=== PATIENT | female | born 1955 | race American Indian/Alaskan Native ===

== ENCOUNTER 2018-08-27 12:01 | Outpatient (CLI) | payer BC | END 2018-08-27 12:02 | disposition home or self-care (01) | LOC: C.PAT 12:01 | DX: M20.22 Hallux rigidus, left foot (principal) ==

== ENCOUNTER 2018-09-03 06:04 | Day surgery (SDC) | payer BC ==
[2018-08-27 12:15] VITALS: BMI 23.3
[2018-09-03] MEDS ORDERED: Midazolam 2 MG/2 ML VIAL ONE (07:51)
[2018-09-03] MEDS ORDERED: Propofol 10 mg/ml Inj (20 ML) ONE (07:51)
[2018-09-03] MEDS ORDERED: Lidocaine Hydrochloride 10 ML INJ ONE (07:56)
[2018-09-03] MEDS ORDERED: Bupivacaine HCl 0.5% PF (10 ml) Inj ONE (07:56)
[2018-09-03] MEDS ORDERED: Lidocaine 2% MPF (5 ml) Inj ONE (07:56)
[2018-09-03] MEDS ORDERED: Ciprofloxacin 400mg/200ml D5W 400 MG/200 ML BAG IVPB ONE (08:01)
--- NOTE | 2018-09-03 08:10 | RAD ---
Date of service: 09/03/2018 PROCEDURE: Left Foot Radiographs. HISTORY: preop COMPARISON: 05/17/2013 FINDINGS: BONES: No interval fracture appreciated. Interval increased spurring of the lateral 1st proximal phalanx noted. Associated 1st metatarsal-phalangeal joint arthrosis Similar dorsal navicular cortical hyperostoses JOINTS: 1st metatarsal-phalangeal joint arthrosis SOFT TISSUES: Normal. OTHER FINDINGS: Similar os trigonum IMPRESSION: No interval fracture. 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
--- NOTE | 2018-09-03 09:23 | PCM.SURG1 ---
Surgeon's Initial Post Op Note - Surgeon's Notes Surgeon: Dr. Landis Sed [employer] Teacher: Nanette Mondragon, PGY2 Type of Anesthesia: IV Sedation, Local ((L) 20cc 1:1 mixture 1% lidocaine & 0.5% marcaine, 5cc 0.5% marcaine; (R) 5cc 0.5% marcaine) Anesthesia Administered By: Dr. Pretty Pre-Operative Diagnosis: 1. Left hallux rigidus. 2. Left hallux onychocryptosis, medial border. 3. Right hallux onychocryptosis, medial border Operative Findings: See operative report. m: 3-0 vicryl, 4-0 vicryl, 4-0 prolene Post-Operative Diagnosis: same Operation Performed: 1. Left 1st MPJ cheilectomy. 2. Left hallux partial nail avulsion with matrixectomy, medial border. 3. Right hallux partial nail avulsion with matrixectomy, medial border Specimen/Specimens Removed: 1. Left 1st MPJ bone. 2. Left hallux ingrown nail. 3. Right hallux ingrown nail Estimated Blood Loss: EBL {In ML}: 1 Blood Products Given: N/A Drains Used: No Drains Date of Surgery/Procedure: 09/03/18 Time of Surgery/Procedure: 09:23
[2018-09-03] MEDS ORDERED: Oxycodone/Acetaminophen 5/325 mg Tab PO PRN ×2 (09:25)
[2018-09-03] MEDS ORDERED: HYDROmorphone 0.5 mg/0.5 ml ISec IVP PRN (09:25)
[2018-09-03] MEDS ORDERED: Sodium Chloride 0.9% 1,000 ML IV SCH (09:30)
[2018-09-03 10:15] VITALS: O2SAT 100
[2018-09-03 11:02] VITALS: TEMP 98
[2018-09-03 11:14] VITALS: BP 10/70; PULSE 70; RESP 18
--- NOTE | 2018-09-03 12:28 | RAD ---
Date of service: 09/03/2018 PROCEDURE: Left Foot Radiographs. HISTORY: s/p left 1st MPJ cheilectomy COMPARISON: 09/03/2018 at 0728 hr FINDINGS: BONES: The prior dorsal bony exostosis and/or spurring closed at the approximate 1st meta carpal phalangeal joint level has been resected. There is similar lateral 1st proximal phalangeal spurring also present. Overlying bandaging here is seen. JOINTS: 1st metatarsal-phalangeal joint arthrosis SOFT TISSUES: Soft tissue slight mild densities compatible with interval surgery. There is overlying bandaging present about the 1st digit OTHER FINDINGS: None. IMPRESSION: Postop changes as above.
--- NOTE | 2018-09-09 18:27 | OP ---
PROCEDURE DATE: 09/03/2018 PREOPERATIVE DIAGNOSIS: Left foot hallux rigidus. POSTOPERATIVE DIAGNOSIS: Left foot hallux rigidus. PROCEDURE PERFORMED: Left foot first metatarsophalangeal joint cheilectomy. SURGEON: Candido Landis DPM. GRAINING PRESS OPERATOR: Sandeep Mondragon DPM, PGY-2. TYPE OF ANESTHESIA: IV sedation with local. ANESTHESIOLOGIST: ALFONSO Everett. INDICATION: The patient is a 63-year-old female with the above-mentioned diagnosis. The patient is being treated by Dr. Landis in his office on an outpatient basis, where she has exhausted multiple forms of conservative treatments. The patient seeks surgical intervention at this time. The patient signed a consent after careful explanation of risks, benefits, alternatives and complications of the procedure and wishes to proceed. No guarantees were given nor implied. NPO was confirmed prior to bringing the patient to the operating room. OPERATIVE PROCEDURE: The patient was brought into the operating room and placed on the operating room table in supine position. A well-padded pneumatic ankle tourniquet was placed onto the patient's left lower extremity in a supramalleolar position. Once IV sedation was achieved, local injection was introduced via Crum block fashion. Once local anesthesia was achieved, the foot was then prepped and draped in normal sterile manner and the procedure began. PROCEDURE: Left foot first metatarsal joint cheilectomy. Attention was directed to the dorsal aspect of the first metatarsophalangeal head of the left foot, where an approximately 6 cm linear longitudinal incision was made medial and parallel to the tendon and extensor hallucis longus that involved the contour deformity. Incision was deepened through subcutaneous tissues. Using sharp and blunt dissection with care being taken to identify and retract all vital and neurovascular structures. All bleeders were cauterized and ligated as necessary. At this time, inverted L-type capsulotomy was performed over the dorsal aspect of the first metatarsophalangeal joint. The periosteal capsular structures were then carefully dissected free of their osseous attachment and reflected medially and laterally, thus exposing the head of the first metatarsal from the operative site. Next, utilizing a sagittal saw, the dorsal and medial prominences were resected and passed from the operative field. All rough edges were then smoothed down with the bone rasp. Directing attention to the dorsal and medial aspects of the proximal phalanx using a rongeur, all dorsal and medial prominences were resected and passed from the operative field. The deformity was assessed and noted to be excellent at this time with increased range of motion within the first metatarsophalangeal joint. The wounds were then washed with copious amounts of sterile saline. Periosteal and capsular structures were reapproximated and coapted using 2-0 and 3-0 Vicryl. Subcuticular tissue was reapproximated using 4-0 Vicryl and the skin was reapproximated and coapted using 4-0 Prolene. Postoperative bandages included Betadine-soaked Adaptic and the dry sterile dressing. POSTOPERATIVE CONDITION: The patient tolerated the procedure and anesthesia well, was escorted to the recovery room with vital signs stable and neurovascular status intact to the left lower extremity. The patient will follow up with Dr. Landis in the office on an outpatient basis. Sandeep Mondragon DPM Candido Landis DPM
== END 2018-09-03 11:16 | disposition home or self-care (01) ==
LOC: C.SDS 06:04
PROVIDERS: ATTEND Podiatrist
DX: M20.22 Hallux rigidus, left foot (principal); L60.0 Ingrowing nail
CPT/HCPCS: 28289; 73620; 73630; 88304; 88312; J0744; J2250; J2704; J3010